=== PATIENT | male | born 1970 | race Caucasian/White ===

== ENCOUNTER 2018-01-13 11:44 | Emergency (ER) | payer OTHER ==
[~2018-01-13] VITALS: Ht 175.3 cm; Wt 90.3 kg
[2018-01-13] MEDS ORDERED: Lisinopril2.5 MG (11:54)
[2018-01-13] MEDS ORDERED: LEVSOD75 PO (11:54)
[2018-01-13] MEDS ORDERED: Keflex250 MG PO (12:20)
[2018-01-13] MEDS ORDERED: Prednisone50 MG PO (12:20)
== END 2018-01-13 12:25 | disposition home or self-care (01) ==
LOC: ER 11:44
DX: L01.00 Impetigo, unspecified (principal); I10 Essential (primary) hypertension; E03.9 Hypothyroidism, unspecified; Z91.030 Bee allergy status; Z79.899 Other long term (current) drug therapy
CPT/HCPCS: 99283